=== PATIENT | female | born 1955 | race Hispanic/Latino ===

== ENCOUNTER 2019-03-22 01:23 | Emergency (ER) | payer OTHER ==
[2019-03-22 01:56] LABS: Absolute Lymphocytes (CBC) 1.5 K/uL (0.7-4.9); Basophils % 0.8 % (0-1.3); Hematocrit 39.2 % (36.0-45.0); Lymphocytes % 29.4 % (15.3-44.8); MPV 10.4 fL (7.6-11.3); RBC Red Blood Cell Count 4.19 M/uL (3.86-4.86)
[2019-03-22 02:09] LABS: Albumin 3.8 g/dL (3.4-5.0); Bilirubin Direct 0.2 mg/dL (0-0.2); Bilirubin Total 0.5 mg/dL (0.2-1.0); Potassium 3.9 mmol/L (3.5-5.1); Protein, Total 7.6 g/dL (6.4-8.2)
[2019-03-22] MEDS ORDERED: ONDANSETRON 4 MG/2 ML VIAL ONE (02:26)
[2019-03-22] MEDS ORDERED: MORPHINE 4 MG/ML SYR ONE (02:26)
--- NOTE | 2019-03-22 04:57 | EDPHYS ---
Physician Documentation [facility] Name: Madyson Payton Age: 63 yrs Sex: Female : 1955 Arrival Date: 03/22/2019 Time: 01:27 Bed 7 Private MD: ED Physician Cale Vance HPI: 03/22 05:01 This 63 yrs old Female presents to ER via Ambulatory with complaints of kdr Abdominal Pain. 05:01 The patient presents with abdominal pain in the epigastric area, in the upper abdomen. kdr Onset: The symptoms/episode began/occurred acutely, suddenly, just prior to arrival, today. The symptoms do not radiate. Associated signs and symptoms: Pertinent positives: nausea and vomiting, Pertinent negatives: blood in stools, chest pain, constipation, diarrhea, dysuria, fever, headache, hematuria, palpitations, shortness of breath, vaginal discharge, vomiting blood. The symptoms are described as achy, burning, crampy, steady. Modifying factors: The symptoms are alleviated by nothing, the symptoms are aggravated by breathing deeply, food, movement, touching the area. Severity of pain: At its worst the pain was moderate just prior to arrival, in the emergency department the pain is unchanged. The patient has not experienced similar symptoms in the past. The patient has not recently seen a physician. Historical: - Allergies: 01:40 No Known Allergies; bb - Home Meds: 01:40 Metformin Oral [Active]; ursodiol Oral [Active]; Lisinopril Oral [Active]; bb - PMHx: 01:40 Diabetes - NIDDM; Hypertension; esophageal varices; bb - Immunization history:: Adult Immunizations up to date. - Social history:: Smoking status: Patient/guardian denies using tobacco, Patient/guardian denies using alcohol. - Ebola Screening: : No symptoms or risks identified at this time. ROS: 05:01 Constitutional: Negative for fever, chills, and weight loss, Eyes: Negative for injury, kdr pain, redness, and discharge, Neck: Negative for injury, pain, and swelling, Cardiovascular: Negative for chest pain, palpitations, and edema, Respiratory: Negative for shortness of breath, cough, wheezing, and pleuritic chest pain, Back: Negative for injury and pain, : Negative for injury, bleeding, discharge, and swelling, MS/Extremity: Negative for injury and deformity, Skin: Negative for injury, rash, and discoloration, Neuro: Negative for headache, weakness, numbness, tingling, and seizure activity. Psych: Negative for depression, anxiety, suicide ideation, homicidal ideation, and hallucinations, Allergy/Immunology: Negative for hives, rash, and allergies, Endocrine: Negative for neck swelling, polydipsia, polyuria, polyphagia, and marked weight changes, Hematologic/Lymphatic: Negative for swollen nodes, abnormal bleeding, and unusual bruising. 05:01 Abdomen/GI: Positive for abdominal pain, nausea and vomiting, Negative for diarrhea, constipation, abdominal cramps, abdominal distension, black/tarry stool, rectal pain, rectal bleeding, bowel incontinence. Exam: 05:01 Constitutional: This is a well developed, well nourished patient who is awake, alert, kdr and in no acute distress. Head/Face: Normocephalic, atraumatic. Eyes: Pupils equal round and reactive to light, extra-ocular motions intact. Lids and lashes normal. Conjunctiva and sclera are non-icteric and not injected. Cornea within normal limits. Periorbital areas with no swelling, redness, or edema. Neck: Trachea midline, no thyromegaly or masses palpated, and no cervical lymphadenopathy. Supple, full range of motion without nuchal rigidity, or vertebral point tenderness. No Meningismus. Chest/axilla: Normal chest wall appearance and motion. Nontender with no deformity. No lesions are appreciated. Cardiovascular: Regular rate and rhythm with a normal S1 and S2. No gallops, murmurs, or rubs. Normal PMI, no JVD. No pulse deficits. Respiratory: Lungs have equal breath sounds bilaterally, clear to auscultation and percussion. No rales, rhonchi or wheezes noted. No increased work of breathing, no retractions or nasal flaring. Back: No spinal tenderness. No costovertebral tenderness. Full range of motion. Skin: Warm, dry with normal turgor. Normal color with no rashes, no lesions, and no evidence of cellulitis. MS/ Extremity: Pulses equal, no cyanosis. Neurovascular intact. Full, normal range of motion. Neuro: Awake and alert, GCS 15, oriented to person, place, time, and situation. Cranial nerves II-XII grossly intact. Motor strength 5/5 in all extremities. Sensory grossly intact. Cerebellar exam normal. Normal gait. Psych: Awake, alert, with orientation to person, place and time. Behavior, mood, and affect are within normal limits. 05:01 Abdomen/GI: Inspection: abdomen appears normal, obese Bowel sounds: active, diminished, in all quadrants, Palpation: soft, moderate abdominal tenderness, in all quadrants, Worse in epigastric area, rebound tenderness, is not appreciated. Vital Signs: 01:40 BP 159 / 80; Pulse 80; Resp 18 S; Temp 97.4(O); Pulse Ox 100% on R/A; Weight 70.76 kg bb (R); Height 5 ft. 3 in. (160.02 cm) (R); Pain 10; 02:39 BP 143 / 75; Pulse 78; Resp 18; Pulse Ox 99% on R/A; ea 03:44 BP 143 / 70; Pulse 82; Resp 18; Pulse Ox 98% on R/A; ea 05:00 BP 120 / 66; Pulse 76; Resp 18; Temp 97.6; Pulse Ox 100% ; ea 01:40 Body Mass Index 27.63 (70.76 kg, 160.02 cm) bb MDM: 04:56 Patient medically screened. kdr 05:01 Data reviewed: vital signs, nurses notes, lab test result(s), radiologic studies. kdr Counseling: I had a detailed discussion with the patient and/or guardian regarding: the historical points, exam findings, and any diagnostic results supporting the discharge/admit diagnosis, lab results, radiology results, the need for outpatient follow up. 03/22 01:32 Order name: Basic Metabolic Panel 03/22 01:32 Order name: CBC with Diff; Complete Time: 02:54 03/22 01:32 Order name: Creatinine for Radiology; Complete Time: 02:54 03/22 01:32 Order name: Hepatic Function; Complete Time: 02:54 03/22 01:32 Order name: Lipase; Complete Time: 02:54 03/22 01:33 Order name: Basic Metabolic Panel; Complete Time: 02:54 EDMS 03/22 01:32 Order name: IV Saline Lock; Complete Time: 02:01 03/22 01:32 Order name: Labs collected and sent; Complete Time: 02: 03/22 02:54 Order name: CT Abd/Pelvis - IV Contrast Only kdr Administered Medications: 02:40 Drug: morphine 4 mg {Note: RASS 1.} Route: IVP; Site: right antecubital; ea 05:16 Follow up: Response: No adverse reaction; Pain is decreased; RASS: Alert and Calm (0) ea 02:40 Drug: Zofran 4 mg Route: IVP; Site: right antecubital; ea 03:30 Follow up: Response: No adverse reaction ea Disposition: 03/22/19 04:56 Discharged to Home. Impression: Abdominal and pelvic pain, Epigastric pain. - Condition is Stable. - Discharge Instructions: Abdominal Pain, Adult, [place]. - Prescriptions for Pepcid 20 mg Oral Tablet - take 1 tablet by ORAL route every 12 hours for 5 days; 10 tablet. Zofran 4 mg Oral Tablet - take 1 tablet by ORAL route every 4-6 hours As needed; 12 tablet. Tramadol 50 mg Oral Tablet - take 1 tablet by ORAL route every 8 hours as needed; 12 tablet. Bentyl 20 mg Oral Tablet - take 1 tablet by ORAL route every 6 hours As needed; 10 tablet. - Medication Reconciliation Form, Thank You Letter, Family Work Release form. - Follow up: Private Physician; When: 2 - 3 days; Reason: If symptoms return, Further diagnostic work-up, Recheck today's complaints, Continuance of care, Re-evaluation by your physician. - Problem is new. - Symptoms are resolved. Signatures: Dispatcher [employer] Cale Lin MD MD kdr Ballard, Brenda, RN RN bb Antunez, Elena, RN RN ea Starr, Gregory, MD MD gs Corrections: (The following items were deleted from the chart) 05:15 04:56 03/22/2019 04:56 Discharged to Home. Impression: Abdominal and pelvic pain; ea Epigastric pain. Condition is Stable. Forms are Family Work Release, Medication Reconciliation Form, Thank You Letter, Antibiotic Education, Prescription Opioid Use. Follow up: Private Physician; When: 2 - 3 days; Reason: If symptoms return, Further diagnostic work-up, Recheck today's complaints, Continuance of care, Re-evaluation by your physician. Problem is new. Symptoms are resolved. kdr
--- NOTE | 2019-03-22 04:57 | ER ---
Nurse's Notes [facility] Name: Madyson Payton Age: 63 yrs Sex: Female : 1955 Arrival Date: 03/22/2019 Time: 01:27 Bed 7 Private MD: Diagnosis: Abdominal and pelvic pain;Epigastric pain Presentation: 03/22 01:38 Presenting complaint: Patient states: she is having abdominal pain which started today bb the pain is getting worse is constant and currently 10/10 pt reports vomiting but no diarrhea pt has history of esophageal varices. Transition of care: patient was not received from another setting of care. Onset of symptoms was March 21, 2019. Risk Assessment: Do you want to hurt yourself or someone else? Patient reports no desire to harm self or others. Initial Sepsis Screen: Does the patient meet any 2 criteria? No. Patient's initial sepsis screen is negative. Does the patient have a suspected source of infection? No. Patient's initial sepsis screen is negative. Care prior to arrival: None. 01:38 Method Of Arrival: Ambulatory bb 01:38 Acuity: VEDA 2 bb Historical: - Allergies: 01:40 No Known Allergies; bb - Home Meds: 01:40 Metformin Oral [Active]; ursodiol Oral [Active]; Lisinopril Oral [Active]; bb - PMHx: 01:40 Diabetes - NIDDM; Hypertension; esophageal varices; bb - Immunization history:: Adult Immunizations up to date. - Social history:: Smoking status: Patient/guardian denies using tobacco, Patient/guardian denies using alcohol. - Ebola Screening: : No symptoms or risks identified at this time. Screenin:38 Abuse screen: Denies threats or abuse. Nutritional screening: No deficits noted. ea Tuberculosis screening: No symptoms or risk factors identified. Fall Risk None identified. Assessment: 02:37 General: Appears in no apparent distress. Behavior is calm, cooperative, appropriate ea for age. Pain: Complains of pain in abdomen. Neuro: Level of Consciousness is awake, alert, obeys commands, Oriented to person, place, time, situation. Respiratory: Airway is patent Respiratory effort is even, unlabored, Respiratory pattern is regular, symmetrical. GI: Abdomen is non-distended, Bowel sounds present X 4 quads. Abd is soft and non tender X 4 quads. Derm: Skin is pink, warm \T\ dry. 03:30 Reassessment: Patient and/or family updated on plan of care and expected duration. Pain ea level reassessed. Patient is alert, oriented x 3, equal unlabored respirations, skin warm/dry/pink. 04:00 Reassessment: Patient and/or family updated on plan of care and expected duration. Pain ea level reassessed. Patient is alert, oriented x 3, equal unlabored respirations, skin warm/dry/pink. 05:12 Reassessment: Patient and/or family updated on plan of care and expected duration. Pain ea level reassessed. Patient is alert, oriented x 3, equal unlabored respirations, skin warm/dry/pink. 05:12 Reassessment: Discharge instruction given to patient, verbalized the understanding of ea instruction. Pt left ED ambulatory accompanied by family. Vital Signs: 01:40 BP 159 / 80; Pulse 80; Resp 18 S; Temp 97.4(O); Pulse Ox 100% on R/A; Weight 70.76 kg bb (R); Height 5 ft. 3 in. (160.02 cm) (R); Pain 10/10; 02:39 BP 143 / 75; Pulse 78; Resp 18; Pulse Ox 99% on R/A; ea 03:44 BP 143 / 70; Pulse 82; Resp 18; Pulse Ox 98% on R/A; ea 05:00 BP 120 / 66; Pulse 76; Resp 18; Temp 97.6; Pulse Ox 100% ; ea 01:40 Body Mass Index 27.63 (70.76 kg, 160.02 cm) ED Course: 01:27 Patient arrived in ED. cf2 01:31 Cale Vance MD is Attending Physician. kdr 01:32 Lorraine Gracia RN is Primary Nurse. ea 01:39 Triage completed. bb 01:40 Arm band placed on Patient placed in an exam room, on a stretcher, on pulse oximetry. bb Family accompanied patient. 01:50 Inserted saline lock: 20 gauge in right antecubital area, using aseptic technique. ea 02:38 Patient has correct armband on for positive identification. Bed in low position. Call ea light in reach. Side rails up X2. 03:35 CT completed. Patient tolerated procedure well. Patient moved to CT via stretcher. Patient moved back from CT. 03:49 CT Abd/Pelvis - IV Contrast Only In Process Unspecified. EDMS 05:00 IV discontinued, intact, bleeding controlled, No redness/swelling at site. Pressure ea dressing applied. 05:13 No provider procedures requiring assistance completed. ea Administered Medications: 02:40 Drug: morphine 4 mg {Note: RASS 1.} Route: IVP; Site: right antecubital; ea 05:16 Follow up: Response: No adverse reaction; Pain is decreased; RASS: Alert and Calm (0) ea 02:40 Drug: Zofran 4 mg Route: IVP; Site: right antecubital; ea 03:30 Follow up: Response: No adverse reaction ea Outcome: 04:56 Discharge ordered by . kdr 05:14 Discharged to home ambulatory. ea 05:14 Condition: stable 05:14 Discharge instructions given to patient, Instructed on discharge instructions, follow up and referral plans. medication usage, Demonstrated understanding of instructions, follow-up care, medications, Prescriptions given X 3. 05:15 Patient left the ED. ea Signatures: Dispatcher [employer] EDMS Cale Vance MD MD kdr Hagler, Ervin eh Ballard, Brenda RN RN Lorraine Valenzuela RN RN [place] cf2 Corrections: (The following items were deleted from the chart) 02:41 02:40 morphine 4 mg IVP in right antecubital ea ea 05:16 03:30 Response: No adverse reaction; Pain is decreased ea ea
[2019-03-22 05:34] VITALS: BP 120/66; TEMP 97.6; O2SAT 100
--- NOTE | 2019-03-22 12:11 | RAD REPORT ---
EXAM DESCRIPTION: CT - Abdomen Pelvis W Contrast - 03/22/2019 4:20 am CLINICAL HISTORY: ABD PAIN COMPARISON: None. TECHNIQUE: CT ABDOMEN PELVIS WITH IV CONTRAST on 03/22/2019 2:54 AM CDT This exam was performed according to our departmental dose-optimization program, which includes autom ated exposure control, adjustment of the mA and/or kV according to patient size and/or use of iterati ve reconstruction technique. FINDINGS: Lower lungs are clear. Abdomen: Liver is mildly cirrhotic in morphology. There is no biliary dilatation. Gallbladder contain s tiny layering calcifications. The pancreas and spleen are normal in appearance. There is a punctate left renal calculus in the lower pole. Adrenal glands and right kidney are unremarkable. Abdominal aorta is normal in course and caliber without aneurysm. There is no free air. There is no r etroperitoneal adenopathy. Pelvis: There is no bowel obstruction. Urinary bladder is unremarkable. There is no free fluid. Uteru s is normal in size. Appendix is poorly seen but there is no pericecal inflammation. Skeleton: There are no acute osseous findings. No suspicious bony lesions. IMPRESSION: No acute inflammatory process. Electronically signed by: Sergio Hernadez MD 03/22/2019 3:55 AM CDT Due to temporary technical issues with the PACS/Fluency reporting system, reports are being signed by the in house radiologist as a courtesy to ensure prompt reporting. The interpreting radiologist is f ully responsible for the content of the report.
== END 2019-03-22 05:15 | disposition home or self-care (01) ==
LOC: ER 01:23
DX: R10.2 Pelvic and perineal pain (principal); E11.9 Type 2 diabetes mellitus without complications; I10 Essential (primary) hypertension
CPT/HCPCS: 85025; 80048; 36415; 80076; 83690; 74177; 96375; 96374; 99284; Q9967; J2405